=== PATIENT | female | born 1970 | race Two or more races ===

== ENCOUNTER 2016-08-21 13:51 | Emergency (ER) | payer OTHER ==
[2016-08-21 14:06] VITALS: BP 121/82; PULSE 94; BMI 19.8
[2016-08-21 16:03] VITALS: TEMP 101.5
--- NOTE | 2016-08-21 17:20 | PDOC ---
History of Present Illness <Aba Evans - Last Filed: 08/21/16 18:35> - History of Present Illness Initial Comments: 08/21/16 17:51 The patient is a 46 year old female, non verbal, with a significant past medical history of severe MR, who presents to the emergency department with home planning consultant salesperson from living facility with fever of 101F today. The home planning consultant salesperson notes the patient has been hugging her abdomen lately which indicates possible abdominal pain. Allergies: NKDA <Kalani Navarro - Last Filed: 08/21/16 18:40> - General Chief Complaint: Pain Stated Complaint: ABD PAIN, DEHYDRATED Past History - Past Medical History HTN: Yes Seizures: Yes - Immunization History Immunization Up to Date: Yes - Psycho/Social/Smoking Cessation Hx Anxiety: No Suicidal Ideation: No Smoking Status: No Smoking History: Never smoked Number of Cigarettes Smoked Daily: 0 Information on smoking cessation initiated: No Hx Alcohol Use: No Drug/Substance Use Hx: No Substance Use Type: None <Aba Evans - Last Filed: 08/21/16 18:35> <Kalani Navarro - Last Filed: 08/21/16 18:40> - Past Medical History Allergies/Adverse Reactions: Allergies Allergy/AdvReac Type Severity Reaction Status Date / Time No Known Allergies Allergy Verified 08/21/16 14:00 Home Medications: Ambulatory Orders Acidoph/L.bulg/Bif.b/S.thermop [Ann Marie-Bid Caplet] 1 each PO DAILY 08/21/16 Aspirin [ASA -] 81 mg PO DAILY 08/21/16 Diltiazem [Cardizem -] 30 mg PO TID 08/21/16 Lorazepam [Ativan] 2 mg PO PRN 08/21/16 Metoprolol Tartrate [Lopressor -] 25 mg PO BID 08/21/16 Oseltamivir Phosphate [Tamiflu Oral Suspension -] 75 mg PO BID 5 Days 08/21/16 Ubidecarenone [Chew Q] 30 mg PO DAILY 08/21/16 Review of Systems - Review of Systems Able to Perform ROS?: No (nonverbal) <Kalani Navarro - Last Filed: 08/21/16 18:40> *Physical Exam - Vital Signs Last Vital Signs Temp Pulse Resp BP Pulse Ox 101.5 F H 94 H 20 121/82 98 08/21/16 16:02 08/21/16 14:01 08/21/16 14:01 08/21/16 14:01 08/21/16 14:01 <Aba Evans - Last Filed: 08/21/16 18:35> - Vital Signs Last Vital Signs Temp Pulse Resp BP Pulse Ox 101.5 F H 94 H 20 121/82 98 08/21/16 16:02 08/21/16 14:01 08/21/16 14:01 08/21/16 14:01 08/21/16 14:01 - Physical Exam Comments: 08/21/16 17:55 GENERAL: Well developed, well nourished. Awake and alert. No acute distress. HEENT: Normocephalic, atraumatic. PERRLA, EOMI. No conjunctival pallor. Sclera are non- icteric. Moist mucous membranes. Oropharynx is clear. NECK: Supple. Full ROM. No JVD. Carotid pulses 2+ and symmetric, without bruits. No thyromegaly. No lymphadenopathy. CARDIOVASCULAR: Regular rate and rhythm. No murmurs, rubs, or gallops. Distal pulses are 2+ and symmetric. PULMONARY: No evidence of respiratory distress. Lungs clear to auscultation bilaterally. No wheezing, rales or rhonchi. ABDOMINAL: Soft. Non-tender. Non-distended. No rebound or guarding. No organomegaly. Normoactive bowel sounds. MUSCULOSKELETAL Normal range of motion at all joints. No bony deformities or tenderness. No CVA tenderness. EXTREMITIES: No cyanosis. No clubbing. No edema. No calf tenderness. SKIN: Warm and dry. Normal capillary refill. No rashes. No jaundice. NEUROLOGICAL: Alert, awake, appropriate. Cranial nerves 2-12 intact. Normoreflexic in the upper and lower extremities. Normal speech. Toes are down-going bilaterally. Gait is normal without ataxia. PSYCHIATRIC: Cooperative. Good eye contact. Appropriate mood and affect. <Kalani Navarro - Last Filed: 08/21/16 18:40> ED Treatment Course - RADIOLOGY Radiology Studies Ordered: Category Date Time Status CHEST PA & LAT [RAD] Stat Radiology 08/21/16 16:33 Ordered <Aba Evans - Last Filed: 08/21/16 18:35> Medical Decision Making - Medical Decision Making 08/21/16 18:36 I was unable to E-prescribe medication to her desired pharmacy, however, I did call the dedicated pharmacy at her senior living ([phone]) and verbally sent the prescription to the pharmacy. <Kalani Navarro - Last Filed: 08/21/16 18:40> *DC/Admit/Observation/Transfer - Discharge Dispostion Admit: No <Aba Evans - Last Filed: 08/21/16 18:35> - Attestations Scribe Attestion: 08/21/16 17:55 Documentation prepared by Kalani Navarro, acting as medical scientific liaison for Aba Evans MD, MD <Kalani Navarro - Last Filed: 08/21/16 18:40> Diagnosis at time of Disposition: Influenza A - Discharge Dispostion Disposition: HOME Condition at time of disposition: Improved - Prescriptions Prescriptions: Oseltamivir Phosphate [Tamiflu Oral Suspension -] 75 mg PO BID 5 Days
[2016-08-21] MEDS ORDERED: OSELTAMIVIR PHOSPHATE 6 MG/1 ML - 60ML BOTTLE PO ONE (18:19)
== END 2016-08-21 19:10 | disposition home or self-care (01) ==
LOC: JER 13:51
DX: J09.X2 Influenza due to identified novel influenza A virus with other respiratory manifestations (principal); I10 Essential (primary) hypertension; G40.909 Epilepsy, unspecified, not intractable, without status epilepticus; F72 Severe intellectual disabilities
CPT/HCPCS: 71020-TC; 87070; 87430; 87804; 99283-25; G9019

== ENCOUNTER 2018-11-13 08:20 | Emergency (ER) | payer OTHER ==
[2018-11-13 08:57] VITALS: BMI 16.7
[2018-11-13 08:58] VITALS: TEMP 98.8
--- NOTE | 2018-11-13 09:09 | PDOC ---
History of Present Illness - General History Source: Patient Exam Limitations: No Limitations - History of Present Illness Initial Comments: 48 yo F h/o profound MR w/ self-injury behavior, horseshoe kidney, esotropia, optic hypoplasic, non-verbal, epilepsy BIBEMS for seizure activity. Per aid, patient finished shower and sat on toliet and put her head on her laps then suddenly tilted her head back with eyes rolling. She then looked weak and aid put her on the floor. Patient tried to put her fingers into her mouth. No fever recorded. 11/13/18 09:53 Labs pending. EKG showed no change compared to prior EKG. Spoke to Dr. Mcfadden. He agrees with discharging the patient on tegratol 200mg PO BID if workup is negative. He will come in to evaluate the patient if there's further seizure episode or abnormal labs findings. <Jair Sandhu - Last Filed: 11/13/18 10:44> <Jessica Dinh - Last Filed: 11/13/18 11:17> - General Chief Complaint: Seizure Stated Complaint: FALL Time Seen by Provider: 11/13/18 08:45 Past History - Past Medical History COPD: No HTN: Yes Seizures: Yes - Immunization History Immunization Up to Date: Yes - Suicide/Smoking/Psychosocial Hx Smoking Status: No Smoking History: Never smoked Number of Cigarettes Smoked Daily: 0 Hx Alcohol Use: No Drug/Substance Use Hx: No Substance Use Type: None <Jair Sandhu - Last Filed: 11/13/18 10:44> <Jessica Dinh - Last Filed: 11/13/18 11:17> - Past Medical History Allergies/Adverse Reactions: Allergies Allergy/AdvReac Type Severity Reaction Status Date / Time No Known Allergies Allergy Verified 11/13/18 08:53 Home Medications: Ambulatory Orders Acidoph/L.bulg/Bif.b/S.thermop [Ann Marie-Bid Caplet] 1 each PO DAILY 08/21/16 Aspirin [ASA -] 81 mg PO DAILY 08/21/16 Diltiazem [Cardizem -] 30 mg PO TID 08/21/16 Lorazepam [Ativan] 2 mg PO PRN 08/21/16 Metoprolol Tartrate [Lopressor -] 25 mg PO BID 08/21/16 Carbamazepine [Tegretol -] 200 mg PO BID #27 tablet 11/13/18 Cephalexin Monohydrate [Keflex -] 500 mg PO BID #13 capsule 11/13/18 Cholecalciferol (Vitamin D3) [Vitamin D3] 400 unit PO DAILY 11/13/18 Pedi Multivit 158/Iron/Vit K1 [Cerovite Jr] 1 each PO DAILY 11/13/18 Review of Systems - Review of Systems Able to Perform ROS?: No <Jair Sandhu - Last Filed: 11/13/18 10:44> *Physical Exam - Vital Signs Last Vital Signs Temp Pulse Resp BP Pulse Ox 98.8 F 104 H 20 97/64 95 11/13/18 08:57 11/13/18 08:53 11/13/18 08:53 11/13/18 08:53 11/13/18 08:53 - Physical Exam General Appearance: No: Apparent Distress Neck: negative: Carotid bruit Respiratory/Chest: positive: Normal Breath Sounds. negative: Crackles, Rales, Rhonchi, Wheezing Cardiovascular: positive: Regular Rhythm, Regular Rate, S1, S2. negative: Murmur Gastrointestinal/Abdominal: positive: Normal Bowel Sounds. negative: Tender, Flat, Soft Neurologic: positive: Alert. negative: Fully Oriented <Jair Sandhu - Last Filed: 11/13/18 10:44> - Vital Signs Last Vital Signs Temp Pulse Resp BP Pulse Ox 98.8 F 104 H 20 97/64 95 11/13/18 08:57 11/13/18 08:53 11/13/18 08:53 11/13/18 08:53 11/13/18 08:53 <Jessica Dinh - Last Filed: 11/13/18 11:17> ED Treatment Course - LABORATORY CBC & Chemistry Diagram: 11/13/18 09:36 11/13/18 09:36 - RADIOLOGY Radiology Studies Ordered: Category Date Time Status HEAD CT WITHOUT CONTRAST [CT] Stat CT Scan 11/13/18 09:01 Ordered CXRPORT [CHEST X-RAY PORTABLE*] [RAD] Stat Radiology 11/13/18 09:01 Ordered <Jair Sandhu - Last Filed: 11/13/18 10:44> - LABORATORY CBC & Chemistry Diagram: 11/13/18 09:36 11/13/18 09:36 - ADDITIONAL ORDERS Additional order review: Laboratory Results 11/13/18 11/13/18 10:19 09:36 Sodium 137 Potassium 4.5 Chloride 109 H Carbon Dioxide 23 Anion Gap 5 L BUN 10 Creatinine 0.7 Creat Clearance w eGFR 90.09 Random Glucose 87 Calcium 8.7 Magnesium 2.3 Total Bilirubin 0.7 AST 62 H ALT 66 H Alkaline Phosphatase 66 Total Protein 7.3 Albumin 3.3 L Urine Color Dk yellow Urine Appearance Cloudy Urine pH 8.5 H D Ur Specific [place] 1.018 Urine Protein 1+ H Urine Glucose (UA) Negative Urine Ketones Negative Urine Blood Negative Urine Nitrite Positive H Urine Bilirubin Negative Urine Urobilinogen 1.0 Ur Leukocyte Esterase 2+ H Urine WBC (Auto) 58 Urine RBC (Auto) 1 Urine Casts (Auto) 76 U Epithel Cells (Auto) 2.3 Urine Bacteria (Auto) >9000 11/13/18 09:36 RBC 4.95 MCV 90.0 MCHC 34.6 RDW 12.6 MPV 9.5 Neutrophils % 66.3 Lymphocytes % 17.1 D Monocytes % 7.0 Eosinophils % 9.0 H D Basophils % 0.6 - Medications Given in the ED: ED Medications Discontinued Medications Generic Name Dose Route Start Last Admin Trade Name Freq PRN Reason Stop Dose Admin Carbamazepine 200 mg 11/13/18 09:55 11/13/18 10:04 Tegretol - PO 11/13/18 09:56 200 mg ONCE ONE Administration Sodium Chloride 1,000 mls @ 1,000 mls/hr 11/13/18 09:58 11/13/18 10:18 Normal Saline - IV 11/13/18 10:57 Not Given ASDIR STA <Jessica Dinh - Last Filed: 11/13/18 11:17> *DC/Admit/Observation/Transfer - Discharge Dispostion Decision to Admit order: No <Jair Sandhu - Last Filed: 11/13/18 10:44> <Jessica Dinh - Last Filed: 11/13/18 11:17> Diagnosis at time of Disposition: Seizure UTI (urinary tract infection) Qualifiers: Urinary tract infection type: site unspecified Hematuria presence: without hematuria Qualified Code(s): N39.0 - Urinary tract infection, site not specified - Discharge Dispostion Disposition: [facility]ILITY Condition at time of disposition: Stable - Prescriptions Prescriptions: Carbamazepine [Tegretol -] 200 mg PO BID #27 tablet Cephalexin Monohydrate [Keflex -] 500 mg PO BID #13 capsule - Referrals Referrals: Elisabeth Mcfadden MD [Staff Physician] - Edwige Chong MD [Non Staff, Medical] - - Patient Instructions Printed Discharge Instructions: DI for Seizure Disorder -- Adult, DI for Urinary Tract Infection (UTI) Additional Instructions: Ms. Dewey was evaluated in the ER at [facility] for seizure like activity. Infection workup is positive for UTI, for which keflex 500mg BID x 7 is prescribed. Case discussed with neurologist consolidation accountant and Dr. Chong, will restart the patient on Tegratol 200mg PO BID for suspected seizure in light of patient's history of epilepsy. Please continue taking your home medications as directed. your medications on discharge include keflex antibiotics x 1 week, take twice a day with food. side effects may include upset stomach, abdominal pain, vomiting, or diarrhea. do not drink alcohol with your medications. Stay well hydrated and rest adequately. an appointment. If you cannot follow-up with your primary care doctor please return to the ED It's recommended that patient follows up with neurologist in charge at [facility] regarding further evaluation and management of seizure. Return to the ED if patient experiences fever, chills, more seizure activities, altered mental status, lethargy. If you have any worsening of symptoms or any other concerns please return to the ED immediately. Return if worsening symptoms including fevers, headache, vomiting, visual or hearing disturbances, abdominal pain, chest pain, shortness of breath, syncope, dehydration, inability to take things by mouth/vomiting, altered mental status, or worsening concerning symptoms.
[2018-11-13 09:49] LABS: BASO % 0.6 % (0-2.0); HEMATOCRIT 44.5 % (32.4-45.2); HEMOGLOBIN 15.4 GM/dL (10.7-15.3); LYMPH % 17.1 % (8-40); MCH 31.1 pg (25.7-33.7); MCHC 34.6 g/dl (32.0-36.0); MEAN PLT VOLUME 9.5 fl (7.5-11.1); NEUT % 66.3 % (42.8-82.8); PLATELET COUNT 193 K/MM3 (134-434); RBC 4.95 M/mm3 (3.60-5.2); RDW 12.6 % (11.6-15.6); WHITE BLOOD COUNT 13.1 K/mm3 (4.0-10.0)
[2018-11-13] MEDS ORDERED: carBAMazepine 200 MG TABLET PO ONE (09:55)
[2018-11-13] MEDS ORDERED: SODIUM CHLORIDE 1,000 ML IV STA (09:58)
[2018-11-13] MEDS ORDERED: carBAMazepine 200 MG TABLET ONE (09:58)
[2018-11-13 10:12] LABS: ALBUMIN 3.3 g/dl (3.4-5.0); ALK PHOS 66 U/L (45-117); ANION GAP 5 MMOL/L (8-16); BILIRUBIN,TOTAL 0.7 mg/dL (0.2-1); BLOOD UREA NITROGEN 10 mg/dL (7-18); CALCIUM 8.7 mg/dL (8.5-10.1); CHLORIDE 109 mmol/L (98-107); CO2 23 mmol/L (21-32); CREATININE 0.7 mg/dL (0.55-1.3); GLUCOSE,RANDOM 87 mg/dL (74-106); MAGNESIUM 2.3 mg/dL (1.8-2.4); POTASSIUM 4.5 mmol/L (3.5-5.1); SGOT/AST 62 U/L (15-37); SGPT/ALT 66 U/L (13-61); SODIUM 137 mmol/L (136-145); TOT PROT 7.3 g/dl (6.4-8.2)
[2018-11-13 10:36] LABS: EPI CELLS 2.3 /HPF (0-5); PH,URINE 8.5 (5.0-8.0); URINE APPEARANCE CLOUDY; URINE BACTERIA >9000 /hpf (NEGATIVE); URINE BILIRUBIN NEGATIVE (NEGATIVE); URINE CASTS 76 /hpf (0-8); URINE COLOR DK YELLOW; URINE GLUCOSE (UA) NEGATIVE (NEGATIVE); URINE KETONE NEGATIVE (NEGATIVE); URINE LEUK ESTERASE 2+ (NEGATIVE); URINE NITRITE POSITIVE (NEGATIVE); URINE PROTEIN 1+ (NEGATIVE); URINE RBC 1 /hpf (0-4); URINE WBC 58 /hpf (0-5)
[2018-11-13] MEDS ORDERED: CEPHALEXIN MONOHYDRATE 500 MG CAPSULE (UD) PO ONE (10:42)
--- NOTE | 2018-11-13 10:42 | PDOC ---
Attending Attestation - Resident Resident Name: Jair Sandhu - ED Attending Attestation I have performed the following: I have examined & evaluated the patient, The case was reviewed & discussed with the resident, I agree w/resident's findings & plan - HPI HPI: 11/13/18 10:42 48 yo F h/o profound MR w/ self-injury behavior, horseshoe kidney, esotropia, optic hypoplasic, non-verbal, epilepsy, HTN, Aflutter not on AC BIBEMS for seizure activity witnessed by aide at the care home. Per aid, patient finished shower and sat on toliet and put her head on her laps then suddenly tilted her head back with eyes rolling. She then looked weak and aid put her on the floor. Patient tried to put her fingers into her mouth. history provided by aid. limited by pt's cognitive impairment. 11/13/18 10:43 - Physicial Exam PE: 11/13/18 11:05 NAD, acting appropriately, calm cooperative, well appearing, nonverbal, PERRL, EOMI, dysconjugate gazing, MMM, nl conjunctiva, anicteric; prominent dentition, neck supple. lungs clear, RRR, abdomen soft nontender, nondistended. DORANTES x4, No peripheral edema. normal color for ethnicity, WWP. - Medical Decision Making 11/13/18 10:44 See HPI for details Vital signs reviewed, bordeline BP, but prior records reveal low BPs in 90/60s, as baseline, also small habitus. also took her home meds at 6AM with metoprolol/diltiazem, likely med side effect as well no fevers rectally, mild tachy, but downtrending and in no acute distress otherwise. Ddx infection, UTI, seizure vs syncope, vasovagal. doubt injuries. back to baseline status. Prior notes reviewed, including admissions, discharges and consultations. laboratory results and imaging reviewed, basic labs and lytes wnl, notable for baseline leukocytosis (similar to prior values) UA_+nitrites and leuk esterase, +WBCs>10, c/w UTI likely trigger. however, pt w/ o systemic sx, well appearing, no further sz episodes- prior urine culture with +klebsiella, relatively tejeda sensative so put on oral abx regimen. CXR_large heart, otherwise unremarkable, no thoracic pathology EKG sinus bradycardia at 52 bpm, no interval abnormalities, narrow QRS, incomplete RBBB, ST and T wave segments and morphology abnormal with Nonspecific T wave abnormalities including diffuse ST depressions and TWI / flattening in all leads - similar to prior EKGs ED course - keflex BID for UTI x 1 week course, prior cultures reviewed. - po challenged, tolerating secretions, doubt ingestant or obstruction. no respiratory sx, abdomen soft and nontender, benign. no choking episodes, no respiratory distress. - neuro cs with Dr Mcfadden via phone, agree to restart her carbamazepine BID therapy, low dose and prior dose initiated.. neuro f/u as outpatient - resident spoke with care home rep at bedside and physician Dr Chong, agreeable to plan. rpt VS normal for patient, does not appear septic or toxic, taking PO without difficulty. no hypotension worse than prior baseline results. Dispo: aide/care home informed of my clinical impression, treatment recommendations and disposition plan. All questions answered to satisfaction and expressed understanding and comfort with this. Reasons for returning to the ED sooner discussed including new or persistent/worsening symptoms (including AMS, lethargy, neuro changes, recurrent sz vs syncope, fever, systemic sx or infection, respiratory distress, inability to kevin PO), with the patient otherwise, follow up with primary care physician. At the time of discharge, the patient is alert, clinically improved, tolerating po and verbalizes understanding of instructions, satisfied with the care received and felt comfortable with the plan. Patient does not suffer from an acute life- threatening medical condition at this time she is safe for outpatient follow- up. 11/13/18 11:12 11/13/18 11:16 11/13/18 11:54 Heart Score/ECG Review #1 ECG reviewed & interpreted by me at: 09:10 General ECG Interpretation: Sinus Rhythm Compared to previous ECG there are: No significant change 11/13/18 10:47 EKG sinus bradycardia at 52 bpm, no interval abnormalities, narrow QRS, incomplete RBBB, ST and T wave segments and morphology abnormal with Nonspecific T wave abnormalities including diffuse ST depressions and TWI / flattening in all leads - similar to prior EKGs
[2018-11-13 11:15] VITALS: BP 97/65; PULSE 67
--- NOTE | 2018-11-13 11:28 | EKG ---
Test Reason : Blood Pressure : / mmHG Vent. Rate : 052 BPM Atrial Rate : 052 BPM P-R Int : 182 ms QRS Dur : 092 ms QT Int : 496 ms P-R-T Axes : 080 063 250 degrees QTc Int : 461 ms POOR DATA QUALITY, INTERPRETATION MAY BE ADVERSELY AFFECTED SINUS BRADYCARDIA INCOMPLETE RIGHT BUNDLE BRANCH BLOCK POSSIBLE RIGHT VENTRICULAR HYPERTROPHY MARKED ST ABNORMALITY, POSSIBLE INFERIOR SUBENDOCARDIAL INJURY ABNORMAL ECG WHEN COMPARED WITH ECG OF 20-AUG-2018 13:15, NO SIGNIFICANT CHANGE WAS FOUND Confirmed by IAN KHANNA MD ([id number]) on 11/13/2018 11:28:12 AM Referred By: Confirmed By:IAN KHANNA MD
[2018-11-13] MEDS ORDERED: CEPHALEXIN MONOHYDRATE 500 MG CAPSULE (UD) ONE (11:36)
== END 2018-11-13 12:27 ==
LOC: JER 08:20
DX: N39.0 Urinary tract infection, site not specified (principal); G40.909 Epilepsy, unspecified, not intractable, without status epilepticus; F73 Profound intellectual disabilities; H50.00 Unspecified esotropia; H47.039 Optic nerve hypoplasia, unspecified eye
CPT/HCPCS: 36415; 71045-TC-FY; 80053; 81003; 83735; 85025; 87086; 87186; 93005; 93010; 99283-25

== ENCOUNTER 2018-11-19 13:01 | Emergency (ER) | payer OTHER ==
[2018-11-19 13:06] VITALS: BP 105/71; PULSE 98; BMI 19.1
--- NOTE | 2018-11-19 13:45 | PDOC ---
History of Present Illness - General Chief Complaint: Weakness Stated Complaint: EVAL / WEAKNESS Time Seen by Provider: 11/19/18 13:28 History Source: Care Provider Exam Limitations: Language Barrier (patient is nonverbal at baseline) - History of Present Illness Initial Comments: 11/19/18 13:43 As per the patients senior caregiver from the [facility], 48 y/o female with PMH of MR (nonveral at baseline), epilepsy, horseshoe kidney, optic hypoplasia, presents to the ED with a one week history of weakness/fatigue/ worsening gait. Of note, patient was here last weekend after suffering a seizure at home (she had been seizure-free for years) she was also found to have a UTI at that time. She was discharged home with Tegretol 200 BID in addition to a 7 day course of keflex. A few years ago, she was on tegretol 50mg daily for her seizures in the past, had been seizure free for many years and was subsequently taken off the tegretol. Since being out back on the tegretol this week she has been more sleepy, less, active and has been having gait issues. She is usually a very active young girl according to the [facility] rep. She has not been having any changes in her appetite and has been having normal bowel movements. The [facility] rep denies her having any fevers, nausea or vomiting. She denies any recent travel or illnesses other than the UTI for which she is on day 6/7 of treatment. 11/19/18 13:47 Timing/Duration: constant Past History - Travel Traveled outside of the country in the last 30 days: No Close contact w/someone who was outside of country & ill: No - Past Medical History Allergies/Adverse Reactions: Allergies Allergy/AdvReac Type Severity Reaction Status Date / Time No Known Allergies Allergy Verified 11/19/18 13:03 Home Medications: Ambulatory Orders Acidoph/L.bulg/Bif.b/S.thermop [Ann Marie-Bid Caplet] 1 each PO DAILY 08/21/16 Aspirin [ASA -] 81 mg PO DAILY 08/21/16 Diltiazem [Cardizem -] 30 mg PO TID 08/21/16 Lorazepam [Ativan] 2 mg PO PRN 08/21/16 Metoprolol Tartrate [Lopressor -] 25 mg PO BID 08/21/16 Carbamazepine [Tegretol -] 200 mg PO BID #27 tablet 11/13/18 Cephalexin Monohydrate [Keflex -] 500 mg PO BID #13 capsule 11/13/18 Cholecalciferol (Vitamin D3) [Vitamin D3] 400 unit PO DAILY 11/13/18 Pedi Multivit 158/Iron/Vit K1 [Cerovite Jr] 1 each PO DAILY 11/13/18 COPD: No CHF: No HTN: Yes Seizures: Yes - Reproductive History LMP comment: currently on her menses - Immunization History Immunization Up to Date: Yes - Suicide/Smoking/Psychosocial Hx Smoking Status: No Smoking History: Never smoked Number of Cigarettes Smoked Daily: 0 Hx Alcohol Use: No Drug/Substance Use Hx: No Substance Use Type: None Review of Systems - Review of Systems Able to Perform ROS?: No (patient nonverbal) *Physical Exam - Vital Signs Last Vital Signs Temp Pulse Resp BP Pulse Ox 98 H 18 105/71 96 11/19/18 13:03 11/19/18 13:03 11/19/18 13:03 11/19/18 13:03 - Physical Exam General Appearance: Yes: Nourished Neck: positive: Normal Thyroid Respiratory/Chest: positive: Lungs Clear, Normal Breath Sounds Cardiovascular: positive: Regular Rhythm, Regular Rate, S1, S2. negative: Edema Gastrointestinal/Abdominal: positive: Normal Bowel Sounds, Flat, Soft. negative : Tenderness Musculoskeletal: negative: CVA Tenderness (R), CVA Tenderness (L) Extremity: negative: Pedal Edema, Swelling Neurologic: positive: Alert, Other (moves all extremities ) ED Treatment Course - LABORATORY CBC & Chemistry Diagram: 11/19/18 14:47 11/19/18 14:47 Medical Decision Making - Medical Decision Making 11/19/18 14:04 cbc/cmp/tsh/ua/ CXR tegretol level adding on troponin - labs all normal 11/19/18 14:24 11/19/18 15:37 *DC/Admit/Observation/Transfer Diagnosis at time of Disposition: Fatigue, Lethargy, Weakness - Discharge Dispostion Disposition: HOME Condition at time of disposition: Stable Decision to Admit order: No - Referrals - Patient Instructions Additional Instructions: You came to the emergency room with weakness / lethargy likely due to your new seizure medication. We did basic labs on you all of which were normal. If you begin to experience fevers, vomiting, urinary symptoms please repeat a urine sample and send it to the lab. In addition, if any of your symptoms become more concerning please return to the emergency room immediately. Please follow up with Dr. su within a few days - Post Discharge Activity - Attestations Physician Attestion: 11/19/18 15:59 mohinder romero
--- NOTE | 2018-11-19 14:00 | PDOC ---
Attending Attestation - HPI HPI: 11/19/18 14:45 The patient is a 48 year old female with a significant past medical history of hypertension, esotropia, aflutter, epilepsy, horseshoe kidney and MR who presents to the emergency department via EMS from [facility] with generalized weakness for about 1 week. As per home, the patient has been noted to have decreased PO intake & normal activity and increased weakness & sleepiness. It is noted that the patient is non-verbal at base. No other symptoms or complaints are reported. - Physicial Exam PE: 11/19/18 15:11 Vitals: Triage vital signs reviewed General Appearance: No acute distress, well nourished, well developed Head: Atraumatic Neck: Supple; No nuchal rigidity Chest Wall: Nontender Cardiac: Regular rate and rhythm, no murmurs, no rubs, no gallops Lungs: Clear to auscultation bilateral, good air movement bilaterally Abdomen: Soft, nondistended, normal bowel sounds, nontender to palpation Extremities: Full range of motion to all extremities, no cyanosis, clubbing, or edema Skin: Warm and dry, no rashes or lesions, no rash, no petechiae Neuro: AOX3; Cranial Nerves 2-12 grossly intact, Strength intact to all extremities, Sensation intact to all extremities, gait deferred Psych: Normal mood, normal affect - Medical Decision Making 11/19/18 14:46 The patient is a 48 year old female with a significant past medical history of hypertension, esotropia, aflutter, epilepsy, horseshoe kidney and MR who presents to the emergency department via EMS from [facility] with generalized weakness for about 1 week. The patient will get labs drawn, EKG nad chest x-ray. <Bora Holbrook - Last Filed: 11/19/18 15:11> - Resident Resident Name: Raquel Vuong - ED Attending Attestation I have performed the following: I have examined & evaluated the patient, The case was reviewed & discussed with the resident, I agree w/resident's findings & plan, Exceptions are as noted - Medical Decision Making 11/19/18 16:05 Well-appearing no apparent distress symptoms emergency department for tiredness Patient was just treated with a UTI We have rechecked her laboratory analysis which is within normal limits patient has been unable to give a urine sample here in the emergency department No fever no white count low suspicion for recurrent UTI Patient eating smiling at the bedside was treated with appropriate antibiotic during last is it Most likely her tiredness secondary to her new medication Tegretol in which 32% of patients will experience this is an adverse effect Her shelter can send a urinalysis she was instructed to return to the emergency department for any fever vomiting change in behavior for any concerns. Findings, need for follow-up and strict return instructions discussed with care team. <Johan Jaramillo - Last Filed: 11/19/18 16:07> Heart Score/ECG Review - ECG Impressions Comment:: 11/19/18 16:07 EKG performed at 1402 demonstrates normal sinus rhythm incomplete right bundle- branch block diffuse ST depressions in leads 23 aVF V3-4 These EKG findings are unchanged from her previous EKG. Interpreted by me. <Johan Jaramillo - Last Filed: 11/19/18 16:07> Attestations - Attestations 11/19/18 14:47 Documentation prepared by Bora Holbrook, acting as medical office technology instructor for Johan Jaramillo MD. <Bora Holbrook - Last Filed: 11/19/18 15:11>
[2018-11-19 14:59] LABS: BASO % 0.6 % (0-2.0); EOS % 8.4 % (0-4.5); HEMATOCRIT 43.3 % (32.4-45.2); LYMPH % 25.5 % (8-40); MCH 31.4 pg (25.7-33.7); MCHC 34.7 g/dl (32.0-36.0); MEAN CELL VOLUME 90.7 fl (80-96); MONO % 7.9 % (3.8-10.2); NEUT % 57.6 % (42.8-82.8); PLATELET COUNT 191 K/MM3 (134-434); RBC 4.77 M/mm3 (3.60-5.2); RDW 12.2 % (11.6-15.6); WHITE BLOOD COUNT 8.5 K/mm3 (4.0-10.0)
[2018-11-19 15:35] LABS: ALBUMIN 3.2 g/dl (3.4-5.0); ALK PHOS 71 U/L (45-117); ANION GAP 4 MMOL/L (8-16); BILIRUBIN,TOTAL 0.3 mg/dL (0.2-1); BLOOD UREA NITROGEN 11 mg/dL (7-18); CALCIUM 8.4 mg/dL (8.5-10.1); CHLORIDE 107 mmol/L (98-107); CO2 28 mmol/L (21-32); CREATININE 0.7 mg/dL (0.55-1.3); GLUCOSE,RANDOM 97 mg/dL (74-106); SGOT/AST 47 U/L (15-37); SGPT/ALT 54 U/L (13-61); SODIUM 139 mmol/L (136-145); TOT PROT 7.1 g/dl (6.4-8.2)
--- NOTE | 2018-11-22 10:39 | EKG ---
Test Reason : Blood Pressure : / mmHG Vent. Rate : 084 BPM Atrial Rate : 084 BPM P-R Int : 172 ms QRS Dur : 096 ms QT Int : 402 ms P-R-T Axes : 073 054 -79 degrees QTc Int : 475 ms NORMAL SINUS RHYTHM INCOMPLETE RIGHT BUNDLE BRANCH BLOCK MARKED ST ABNORMALITY, POSSIBLE INFERIOR SUBENDOCARDIAL INJURY ABNORMAL ECG WHEN COMPARED WITH ECG OF 13-NOV-2018 09:08, VENT. RATE HAS INCREASED BY 32 BPM T WAVE INVERSION LESS EVIDENT IN LATERAL LEADS Confirmed by BENJA PEÑA MD ([id number]) on 11/22/2018 10:39:18 AM Referred By: Confirmed By:BENJA PEÑA MD
== END 2018-11-19 16:25 | disposition home or self-care (01) ==
LOC: JER 13:01
DX: R53.1 Weakness (principal); R53.83 Other fatigue; R26.89 Other abnormalities of gait and mobility; I10 Essential (primary) hypertension; G40.909 Epilepsy, unspecified, not intractable, without status epilepticus; Q63.1 Lobulated, fused and horseshoe kidney; F78 Other intellectual disabilities
CPT/HCPCS: 36415; 80053; 80156; 84443; 84484; 84702; 85025; 93005; 93010; 99283-25

== ENCOUNTER 2020-09-29 11:08 | Emergency (ER) | payer OTHER ==
[2020-09-29 11:35] VITALS: BMI 34.8
[2020-09-29 14:03] LABS: BASO % 0.5 % (0-2.0); EOS % 0.1 % (0-4.5); HEMATOCRIT 43.9 % (32.4-45.2); HEMOGLOBIN 15.9 GM/dL (10.7-15.3); LYMPH % 6.1 % (8-40); MCH 32.2 pg (25.7-33.7); MCHC 36.3 g/dl (32.0-36.0); MEAN CELL VOLUME 88.8 fl (80-96); MEAN PLT VOLUME 8.5 fl (7.5-11.1); MONO % 7.2 % (3.8-10.2); NEUT % 86.1 % (42.8-82.8); PLATELET COUNT 235 K/MM3 (134-434); RBC 4.94 M/mm3 (3.60-5.2); RDW 12.8 % (11.6-15.6); WHITE BLOOD COUNT 18.1 K/mm3 (4.0-10.0)
[2020-09-29 14:11] LABS: POTASSIUM 3.9 mmol/L (3.5-5.1)
[2020-09-29 14:12] LABS: ALBUMIN 3.6 g/dl (3.4-5.0); BLOOD UREA NITROGEN 13.7 mg/dL (7-18)
[2020-09-29 14:18] LABS: BILIRUBIN,TOTAL 1.4 mg/dL (0.2-1)
[2020-09-29 15:16] LABS: EPI CELLS >36 /uL (0-25.1); HYALINE CASTS 38 /uL (0-3.1); URINE APPEARANCE TURBID; URINE BILIRUBIN 1+ (NEGATIVE); URINE COLOR DK YELLOW; URINE GLUCOSE (UA) NEGATIVE (NEGATIVE); URINE KETONE 1+ (NEGATIVE); URINE LEUK ESTERASE 2+ (NEGATIVE); URINE NITRITE POSITIVE (NEGATIVE); URINE PROTEIN 2+ (NEGATIVE); URINE WBC 1453 /uL (0-25.8)
[2020-09-29] MEDS ORDERED: SULFAMETHOXAZOLE/TRIMETHOPRIM 800MG/160MG D.S. TABLET PO ONE (15:50)
[2020-09-29 15:57] LABS: URINE RBC 642.7 /uL (0-23.9); YEAST NONE SEEN (NEGATIVE)
[2020-09-29 16:23] VITALS: BP 131/79; PULSE 90; TEMP 96.7
[2020-09-29] MEDS ORDERED: SULFAMETHOXAZOLE/TRIMETHOPRIM 800MG/160MG D.S. TABLET ONE (16:30)
== END 2020-09-29 16:50 | disposition home or self-care (01) ==
LOC: JER 11:08
DX: N30.00 Acute cystitis without hematuria (principal)
CPT/HCPCS: 36415; 70450-TC; 70486-TC; 72125-TC; 80053; 81003; 85025; 99285-25

== ENCOUNTER 2021-05-08 09:16 | Emergency (ER) | payer OTHER ==
[2021-05-08 09:36] VITALS: BP 129/76; PULSE 78; TEMP 98.6; BMI 23.9
[2021-05-08 11:34] LABS: EPI CELLS 7 /uL (0-25.1); HYALINE CASTS 3 /uL (0-3.1); URINE APPEARANCE TURBID; URINE BACTERIA >9,000 /uL (0-1359); URINE BILIRUBIN NEGATIVE (NEGATIVE); URINE COLOR YELLOW; URINE GLUCOSE (UA) NEGATIVE (NEGATIVE); URINE KETONE NEGATIVE (NEGATIVE); URINE LEUK ESTERASE 3+ (NEGATIVE); URINE NITRITE NEGATIVE (NEGATIVE); URINE PROTEIN 1+ (NEGATIVE); URINE RBC 38 /uL (0-23.9); URINE WBC 4286 /uL (0-25.8)
[2021-05-08 11:41] LABS: CHLORIDE 108 mmol/L (98-107); SODIUM 141 mmol/L (136-145)
[2021-05-08 11:44] LABS: ALBUMIN 3.3 g/dl (3.4-5.0); CALCIUM 8.8 mg/dL (8.5-10.1)
[2021-05-08 11:45] LABS: ANION GAP 5 MMOL/L (8-16); BLOOD UREA NITROGEN 10.7 mg/dL (7-18); CO2 27 mmol/L (21-32); GLUCOSE,RANDOM 102 mg/dL (74-106)
[2021-05-08 11:47] LABS: SGOT/AST 54 U/L (15-37); SGPT/ALT 57 U/L (13-61)
[2021-05-08 11:48] LABS: BILIRUBIN,TOTAL 0.4 mg/dL (0.2-1); CREATININE 0.7 mg/dL (0.55-1.3)
[2021-05-08 11:49] LABS: ALK PHOS 101 U/L (45-117); TOT PROT 7.6 g/dl (6.4-8.2)
[2021-05-08 11:59] LABS: BASO % 0.3 % (0-2.0); EOS % 0.6 % (0-4.5); HEMATOCRIT 42.9 % (32.4-45.2); HEMOGLOBIN 15.6 GM/dL (10.7-15.3); LYMPH % 13.2 % (8-40); MCH 32.4 pg (25.7-33.7); MCHC 36.3 g/dl (32.0-36.0); MEAN CELL VOLUME 89.3 fl (80-96); MEAN PLT VOLUME 9.4 fl (7.5-11.1); MONO % 4.3 % (3.8-10.2); NEUT % 81.6 % (42.8-82.8); PLATELET COUNT 170 10^3/uL (134-434); RBC 4.81 M/mm3 (3.60-5.2); RDW 12.2 % (11.6-15.6); WHITE BLOOD COUNT 10.8 K/mm3 (4.0-10.0)
[2021-05-08] MEDS ORDERED: CEPHALEXIN MONOHYDRATE 500 MG CAPSULE (UD) PO ONE (12:21)
[2021-05-08] MEDS ORDERED: CEPHALEXIN MONOHYDRATE 250 MG CAPSULE (FP) ONE ×2 (12:26→13:05)
== END 2021-05-08 13:45 | disposition home or self-care (01) ==
LOC: JER 09:16
DX: G40.89 Other seizures (principal); N39.0 Urinary tract infection, site not specified
CPT/HCPCS: 36415; 71045-TC-FY; 80053; 80156; 81003; 82550; 84484; 85025; 87086; 87186; 93005; 93010; 99285-25

== ENCOUNTER 2021-06-26 08:44 | Inpatient (IN) | payer OTHER ==
[2021-06-26] MEDS ORDERED: SODIUM CHLORIDE 0.9% 1000 ML INFUS.BAG IV ONE ×2 (11:28→15:45)
[2021-06-26] MEDS ORDERED: ONDANSETRON 4 MG/2 ML VIAL ONE (11:30)
[2021-06-26] MEDS ORDERED: ONDANSETRON 4 MG/2 ML VIAL IVPUSH ONE (11:35)
[2021-06-26 11:42] LABS: BASO % 0.3 % (0-2.0); EOS % 0.3 % (0-4.5); HEMATOCRIT 44.5 % (32.4-45.2); HEMOGLOBIN 15.8 GM/dL (10.7-15.3); LYMPH % 7.6 % (8-40); MCH 31.6 pg (25.7-33.7); MCHC 35.4 g/dl (32.0-36.0); MEAN CELL VOLUME 89.2 fl (80-96); MONO % 4.2 % (3.8-10.2); NEUT % 87.6 % (42.8-82.8); PLATELET COUNT 184 10^3/uL (134-434); RBC 4.99 M/mm3 (3.60-5.2); RDW 13.2 % (11.6-15.6); WHITE BLOOD COUNT 13.7 K/mm3 (4.0-10.0)
[2021-06-26 12:08] LABS: CALCIUM 8.7 mg/dL (8.5-10.1)
[2021-06-26 12:09] LABS: ALBUMIN 3.3 g/dl (3.4-5.0); BLOOD UREA NITROGEN 8.5 mg/dL (7-18)
[2021-06-26 12:12] LABS: CREATININE 0.7 mg/dL (0.55-1.3)
[2021-06-26 12:13] LABS: BILIRUBIN,TOTAL 0.4 mg/dL (0.2-1); TOT PROT 7.3 g/dl (6.4-8.2)
[2021-06-26 12:35] LABS: EPI CELLS 32 /uL (0-25.1); HYALINE CASTS 3 /uL (0-3.1); PH,URINE 7.5 (5.0-8.0); URINE APPEARANCE CLEAR; URINE BACTERIA 21 /uL (0-1359); URINE BILIRUBIN NEGATIVE (NEGATIVE); URINE COLOR YELLOW; URINE GLUCOSE (UA) NEGATIVE (NEGATIVE); URINE KETONE NEGATIVE (NEGATIVE); URINE LEUK ESTERASE NEGATIVE (NEGATIVE); URINE NITRITE NEGATIVE (NEGATIVE); URINE PROTEIN NEGATIVE (NEGATIVE); URINE RBC 6 /uL (0-23.9); URINE UROBILINOGEN 0.2 mg/dL (0.2-1.0); URINE WBC 22 /uL (0-25.8)
[2021-06-26] MEDS ORDERED: ACETAMINOPHEN INJECTION 100 ML IVPB ONE (14:46)
[2021-06-26] MEDS ORDERED: VANCOMYCIN 1 GM in D5W (PRE-DOCKED) 1,000 MG/250 ML IVPB ONE (14:53)
[2021-06-26] MEDS ORDERED: PIPERACILLIN/TAZOB 3.375 GM 3.375 GM in DEXTROSE 5%-WATER - 50 ML IVPB ONE (14:54)
[2021-06-26] MEDS ORDERED: VANCOMYCIN 1 GRAM (PRE-DOCKED) 1,000 MG/250 ML BAG IVPB ONE (15:06)
[2021-06-26] MEDS ORDERED: PIPERACILLIN/TAZOB 3.375 GM 3.375 GM/50 ML BAG IVPB ONE (15:06)
[2021-06-26] MEDS ORDERED: SODIUM CHLORIDE 1,000 ML IV SCH ×2 (15:45→18:21)
[2021-06-26] MEDS ORDERED: ALBUTEROL SO4 0.5 % INH SOLN 2.5 MG/0.5 ML VIAL.NEB. NEB PRN (15:51)
[2021-06-26] MEDS ORDERED: ENOXAPARIN NA (PORCINE) 40 MG/0.4 ML DISP.SYRIN SQ ONE (16:00)
[2021-06-26] MEDS ORDERED: ACETAMINOPHEN 1000 MG/100 ML VIAL IVPB PRN (16:12)
[2021-06-26] MEDS: ENOXAPARIN NA (PORCINE) 40 MG/0.4 ML DISP.SYRIN SQ SCH (16:17)
[2021-06-26] MEDS ORDERED: LORazepam 2 MG/ML SDV VIAL IVPUSH PRN (16:21)
[2021-06-26] MEDS ORDERED: PIPERACILLIN/TAZOB 3.375 GM 3.375 GM in DEXTROSE 5%-WATER - 50 ML IVPB SCH (18:00)
[2021-06-26] MEDS: PANTOPRAZOLE SODIUM 40 MG VIAL IVPUSH SCH (18:33)
[2021-06-26] MEDS ORDERED: carBAMazepine 100 MG TAB.CHEW PO SCH (22:00)
[2021-06-26] MEDS ORDERED: CHLORHEXIDINE GLUCONATE 4% CLEANSER FOR DECOLONIZATION TP SCH (22:00)
[2021-06-26] MEDS: CARBAMIDE PEROXIDE 6.5% OTIC 15 ML BOTTLE AU SCH (23:31)
[2021-06-26] MEDS: dilTIAZem HCL 30 MG TABLET PO SCH (23:31)
[2021-06-26] MEDS: METOPROLOL TARTRATE 25 MG TABLET (FP) PO SCH (23:31)
[2021-06-27] MEDS ORDERED: ACETAMINOPHEN 1000 MG/100 ML VIAL IVPB ONE (01:29)
[2021-06-27] MEDS ORDERED: DEXTROSE 5%-WATER - 50 ML IVPB ONE ×3 (01:57→17:24)
[2021-06-27] MEDS ORDERED: PIPERACILLIN/TAZOBACTAM 3.375 GM VIAL IVPB ONE ×3 (01:57→17:24)
[2021-06-27] MEDS: PIPERACILLIN/TAZOB 3.375 GM 3.375 GM in DEXTROSE 5%-WATER - 50 ML IVPB SCH ×3 (02:01→17:25)
[2021-06-27] MEDS: dilTIAZem HCL 30 MG TABLET PO SCH ×3 (06:12→21:23)
[2021-06-27] MEDS: carBAMazepine 100 MG/5 ML UNIT-DOSE CUP PO SCH ×2 (06:12→17:26)
[2021-06-27 08:22] LABS: BASO % 0.2 % (0-2.0); EOS % 0.9 % (0-4.5); HEMATOCRIT 34.8 % (32.4-45.2); HEMOGLOBIN 12.4 GM/dL (10.7-15.3); LYMPH % 19.8 % (8-40); MCHC 35.8 g/dl (32.0-36.0); MEAN CELL VOLUME 89.6 fl (80-96); MEAN PLT VOLUME 9.1 fl (7.5-11.1); MONO % 5.8 % (3.8-10.2); NEUT % 73.3 % (42.8-82.8); PLATELET COUNT 141 10^3/uL (134-434); RBC 3.88 M/mm3 (3.60-5.2); RDW 13.3 % (11.6-15.6); WHITE BLOOD COUNT 10.6 K/mm3 (4.0-10.0)
[2021-06-27 08:49] LABS: CALCIUM 7.9 mg/dL (8.5-10.1); MAGNESIUM 1.9 mg/dL (1.8-2.4)
[2021-06-27 08:52] LABS: CREATININE 0.7 mg/dL (0.55-1.3); PHOSPHOROUS 3.2 mg/dL (2.5-4.9)
[2021-06-27 08:53] LABS: BILIRUBIN,TOTAL 1.4 mg/dL (0.2-1)
[2021-06-27 08:54] LABS: TOT PROT 5.4 g/dl (6.4-8.2)
[2021-06-27 09:03] LABS: ALBUMIN 2.3 g/dl (3.4-5.0)
[2021-06-27] MEDS: PANTOPRAZOLE SODIUM 40 MG VIAL IVPUSH SCH (10:29)
[2021-06-27] MEDS: METOPROLOL TARTRATE 25 MG TABLET (FP) PO SCH ×2 (10:29→21:22)
[2021-06-27] MEDS: ENOXAPARIN NA (PORCINE) 40 MG/0.4 ML DISP.SYRIN SQ SCH (10:29)
[2021-06-27] MEDS: ASPIRIN COATED 81 MG TABLET.EC PO SCH (10:29)
[2021-06-27] MEDS ORDERED: PT OWN MED DRAWER 7, Y5N ONE ×2 (17:24→21:16)
[2021-06-27] MEDS: CARBAMIDE PEROXIDE 6.5% OTIC 15 ML BOTTLE AU SCH (22:01)
[2021-06-28] MEDS ORDERED: DEXTROSE 5%-WATER - 50 ML IVPB ONE ×3 (00:12→17:10)
[2021-06-28] MEDS ORDERED: PIPERACILLIN/TAZOBACTAM 3.375 GM VIAL IVPB ONE ×3 (00:12→17:10)
[2021-06-28] MEDS: PIPERACILLIN/TAZOB 3.375 GM 3.375 GM in DEXTROSE 5%-WATER - 50 ML IVPB SCH ×3 (01:18→17:13)
[2021-06-28] MEDS: dilTIAZem HCL 30 MG TABLET PO SCH ×3 (05:26→21:37)
[2021-06-28] MEDS: carBAMazepine 100 MG/5 ML UNIT-DOSE CUP PO SCH ×2 (05:26→17:12)
[2021-06-28] MEDS: ENOXAPARIN NA (PORCINE) 40 MG/0.4 ML DISP.SYRIN SQ SCH (09:10)
[2021-06-28] MEDS: PANTOPRAZOLE SODIUM 40 MG VIAL IVPUSH SCH (09:10)
[2021-06-28] MEDS: METOPROLOL TARTRATE 25 MG TABLET (FP) PO SCH ×2 (09:10→21:37)
[2021-06-28] MEDS: ASPIRIN COATED 81 MG TABLET.EC PO SCH (09:12)
[2021-06-28 09:13] LABS: BASO % 0.2 % (0-2.0); EOS % 0.9 % (0-4.5); HEMATOCRIT 35.2 % (32.4-45.2); LYMPH % 12.6 % (8-40); MCH 32.6 pg (25.7-33.7); MCHC 36.8 g/dl (32.0-36.0); MEAN CELL VOLUME 88.5 fl (80-96); MEAN PLT VOLUME 9.2 fl (7.5-11.1); MONO % 7.3 % (3.8-10.2); PLATELET COUNT 141 10^3/uL (134-434); RBC 3.98 M/mm3 (3.60-5.2); RDW 12.7 % (11.6-15.6); WHITE BLOOD COUNT 10.9 K/mm3 (4.0-10.0)
[2021-06-28 09:22] LABS: ALBUMIN 2.6 g/dl (3.4-5.0); CALCIUM 7.8 mg/dL (8.5-10.1)
[2021-06-28 09:23] LABS: BLOOD UREA NITROGEN 10.7 mg/dL (7-18); MAGNESIUM 1.8 mg/dL (1.8-2.4)
[2021-06-28 09:26] LABS: CREATININE 0.7 mg/dL (0.55-1.3); PHOSPHOROUS 2.9 mg/dL (2.5-4.9)
[2021-06-28 09:27] LABS: BILIRUBIN,TOTAL 1.2 mg/dL (0.2-1); TOT PROT 6.1 g/dl (6.4-8.2)
[2021-06-28] MEDS ORDERED: POTASSIUM CHLORIDE ORAL LIQUID 20 MEQ/15 ML PO ONE (11:45)
[2021-06-28] MEDS ORDERED: PT OWN MED DRAWER 7, Y5N ONE (17:10)
[2021-06-28] MEDS: CARBAMIDE PEROXIDE 6.5% OTIC 15 ML BOTTLE AU SCH (21:38)
[2021-06-28 22:41] VITALS: BMI 19.3
[2021-06-29] MEDS ORDERED: DEXTROSE 5%-WATER - 50 ML IVPB ONE ×3 (00:09→16:09)
[2021-06-29] MEDS ORDERED: PIPERACILLIN/TAZOBACTAM 3.375 GM VIAL IVPB ONE ×3 (00:09→16:09)
[2021-06-29] MEDS: PIPERACILLIN/TAZOB 3.375 GM 3.375 GM in DEXTROSE 5%-WATER - 50 ML IVPB SCH ×3 (02:53→17:22)
[2021-06-29] MEDS ORDERED: DEXTROSE 50%-WATER 25 GM/50 ML DISP.SYRIN IVPUSH ONE (05:48)
[2021-06-29] MEDS ORDERED: PT OWN MED DRAWER 7, Y5N ONE ×3 (05:49→21:57)
[2021-06-29] MEDS ORDERED: DEXTROSE 50%-WATER 25 GM/50 ML DISP.SYRIN ONE (05:50)
[2021-06-29] MEDS: carBAMazepine 100 MG/5 ML UNIT-DOSE CUP PO SCH ×2 (06:22→17:22)
[2021-06-29] MEDS: dilTIAZem HCL 30 MG TABLET PO SCH ×3 (06:23→22:04)
[2021-06-29 10:02] LABS: BASO % 0.2 % (0-2.0); EOS % 1.6 % (0-4.5); HEMATOCRIT 35.4 % (32.4-45.2); HEMOGLOBIN 13.2 GM/dL (10.7-15.3); LYMPH % 14.5 % (8-40); MCH 32.7 pg (25.7-33.7); MCHC 37.3 g/dl (32.0-36.0); MEAN CELL VOLUME 87.6 fl (80-96); MEAN PLT VOLUME 8.9 fl (7.5-11.1); MONO % 8.1 % (3.8-10.2); NEUT % 75.6 % (42.8-82.8); PLATELET COUNT 159 10^3/uL (134-434); RBC 4.03 M/mm3 (3.60-5.2); WHITE BLOOD COUNT 10.9 K/mm3 (4.0-10.0)
[2021-06-29 10:21] LABS: ALBUMIN 2.6 g/dl (3.4-5.0); BLOOD UREA NITROGEN 10.5 mg/dL (7-18); MAGNESIUM 2.3 mg/dL (1.8-2.4)
[2021-06-29 10:22] LABS: CALCIUM 8.2 mg/dL (8.5-10.1)
[2021-06-29 10:24] LABS: CREATININE 0.5 mg/dL (0.55-1.3); PHOSPHOROUS 2.9 mg/dL (2.5-4.9)
[2021-06-29 10:26] LABS: TOT PROT 6.2 g/dl (6.4-8.2)
[2021-06-29] MEDS: ASPIRIN COATED 81 MG TABLET.EC PO SCH (11:07)
[2021-06-29] MEDS: PANTOPRAZOLE SODIUM 40 MG VIAL IVPUSH SCH (11:08)
[2021-06-29] MEDS: METOPROLOL TARTRATE 25 MG TABLET (FP) PO SCH ×2 (11:08→22:04)
[2021-06-29] MEDS: ENOXAPARIN NA (PORCINE) 40 MG/0.4 ML DISP.SYRIN SQ SCH (11:08)
[2021-06-29] MEDS: CARBAMIDE PEROXIDE 6.5% OTIC 15 ML BOTTLE AU SCH (22:04)
[2021-06-30] MEDS ORDERED: DEXTROSE 5%-WATER - 50 ML IVPB ONE ×4 (01:43→17:05)
[2021-06-30] MEDS ORDERED: PIPERACILLIN/TAZOBACTAM 3.375 GM VIAL IVPB ONE ×4 (01:43→17:05)
[2021-06-30] MEDS: PIPERACILLIN/TAZOB 3.375 GM 3.375 GM in DEXTROSE 5%-WATER - 50 ML IVPB SCH ×3 (02:11→17:13)
[2021-06-30] MEDS ORDERED: PT OWN MED DRAWER 7, Y5N ONE ×2 (05:40→17:04)
[2021-06-30] MEDS: dilTIAZem HCL 30 MG TABLET PO SCH ×3 (05:46→21:04)
[2021-06-30] MEDS: carBAMazepine 100 MG/5 ML UNIT-DOSE CUP PO SCH ×2 (05:46→17:13)
[2021-06-30 08:31] LABS: BASO % 0.3 % (0-2.0); EOS % 5.5 % (0-4.5); HEMOGLOBIN 13.2 GM/dL (10.7-15.3); LYMPH % 14.1 % (8-40); MCH 31.9 pg (25.7-33.7); MCHC 36.5 g/dl (32.0-36.0); MEAN CELL VOLUME 87.5 fl (80-96); MEAN PLT VOLUME 8.8 fl (7.5-11.1); MONO % 8.9 % (3.8-10.2); NEUT % 71.2 % (42.8-82.8); PLATELET COUNT 178 10^3/uL (134-434); RBC 4.12 M/mm3 (3.60-5.2); RDW 12.8 % (11.6-15.6); WHITE BLOOD COUNT 8.6 K/mm3 (4.0-10.0)
[2021-06-30 08:58] LABS: ALBUMIN 2.6 g/dl (3.4-5.0); BLOOD UREA NITROGEN 9.9 mg/dL (7-18); CALCIUM 8.3 mg/dL (8.5-10.1)
[2021-06-30 08:59] LABS: MAGNESIUM 2.3 mg/dL (1.8-2.4)
[2021-06-30 09:00] LABS: CREATININE 0.6 mg/dL (0.55-1.3)
[2021-06-30 09:01] LABS: BILIRUBIN,TOTAL 1.2 mg/dL (0.2-1); PHOSPHOROUS 3.3 mg/dL (2.5-4.9)
[2021-06-30 09:02] LABS: TOT PROT 6.4 g/dl (6.4-8.2)
[2021-06-30] MEDS: PANTOPRAZOLE SODIUM 40 MG VIAL IVPUSH SCH (10:55)
[2021-06-30] MEDS: ENOXAPARIN NA (PORCINE) 40 MG/0.4 ML DISP.SYRIN SQ SCH (10:55)
[2021-06-30] MEDS: METOPROLOL TARTRATE 25 MG TABLET (FP) PO SCH ×2 (10:55→21:04)
[2021-06-30] MEDS: ASPIRIN COATED 81 MG TABLET.EC PO SCH (10:55)
[2021-06-30] MEDS ORDERED: ACETAMINOPHEN 1000 MG/100 ML VIAL IVPB ONE ×2 (20:17)
[2021-06-30] MEDS: CARBAMIDE PEROXIDE 6.5% OTIC 15 ML BOTTLE AU SCH (21:04)
[2021-07-01] MEDS ORDERED: PIPERACILLIN/TAZOBACTAM 3.375 GM VIAL IVPB ONE ×3 (00:56→09:55)
[2021-07-01] MEDS ORDERED: DEXTROSE 5%-WATER - 50 ML IVPB ONE ×3 (00:57→09:55)
[2021-07-01] MEDS: PIPERACILLIN/TAZOB 3.375 GM 3.375 GM in DEXTROSE 5%-WATER - 50 ML IVPB SCH ×2 (01:13→09:56)
[2021-07-01] MEDS ORDERED: PT OWN MED DRAWER 7, Y5N ONE ×2 (05:10→11:28)
[2021-07-01] MEDS: dilTIAZem HCL 30 MG TABLET PO SCH ×2 (05:40→14:57)
[2021-07-01] MEDS: carBAMazepine 100 MG/5 ML UNIT-DOSE CUP PO SCH (05:40)
[2021-07-01 09:37] LABS: CALCIUM 8.6 mg/dL (8.5-10.1)
[2021-07-01 09:38] LABS: ALBUMIN 2.8 g/dl (3.4-5.0); BLOOD UREA NITROGEN 10.1 mg/dL (7-18); MAGNESIUM 2.5 mg/dL (1.8-2.4)
[2021-07-01 09:40] LABS: CREATININE 0.5 mg/dL (0.55-1.3)
[2021-07-01 09:42] LABS: TOT PROT 6.7 g/dl (6.4-8.2)
[2021-07-01] MEDS: ASPIRIN COATED 81 MG TABLET.EC PO SCH (09:57)
[2021-07-01] MEDS: ENOXAPARIN NA (PORCINE) 40 MG/0.4 ML DISP.SYRIN SQ SCH (09:57)
[2021-07-01] MEDS: METOPROLOL TARTRATE 25 MG TABLET (FP) PO SCH (09:57)
[2021-07-01] MEDS: PANTOPRAZOLE SODIUM 40 MG VIAL IVPUSH SCH (09:57)
[2021-07-01 09:59] LABS: BASO % 0.4 % (0-2.0); HEMATOCRIT 37.5 % (32.4-45.2); HEMOGLOBIN 13.6 GM/dL (10.7-15.3); LYMPH % 21.6 % (8-40); MCH 31.5 pg (25.7-33.7); MCHC 36.2 g/dl (32.0-36.0); MEAN PLT VOLUME 9.1 fl (7.5-11.1); MONO % 8.3 % (3.8-10.2); NEUT % 64.7 % (42.8-82.8); PLATELET COUNT 199 10^3/uL (134-434); RBC 4.31 M/mm3 (3.60-5.2); RDW 12.9 % (11.6-15.6); WHITE BLOOD COUNT 8.4 K/mm3 (4.0-10.0)
[2021-07-01 14:53] VITALS: BP 131/75; PULSE 69; TEMP 98.5
== END 2021-07-01 17:21 | DRG 139 ==
LOC: JER 08:44 → JERBED 13:40 → MERGE 13:40 → J6S 18:03
PROVIDERS: ADMIT Internal Medicine; ATTEND Internal Medicine
DX: J18.9 Pneumonia, unspecified organism (principal); R62.7 Adult failure to thrive; Z68.20 Body mass index [BMI] 20.0-20.9, adult; H50.00 Unspecified esotropia; Q14.2 Congenital malformation of optic disc; R00.0 Tachycardia, unspecified; F73 Profound intellectual disabilities; Q63.1 Lobulated, fused and horseshoe kidney; G40.909 Epilepsy, unspecified, not intractable, without status epilepticus; R65.10 Systemic inflammatory response syndrome (SIRS) of non-infectious origin without acute organ dysfunction; N28.89 Other specified disorders of kidney and ureter; R53.2 Functional quadriplegia; K21.9 Gastro-esophageal reflux disease without esophagitis; D72.829 Elevated white blood cell count, unspecified; N13.2 Hydronephrosis with renal and ureteral calculous obstruction; K57.90 Diverticulosis of intestine, part unspecified, without perforation or abscess without bleeding; R11.10 Vomiting, unspecified; R50.9 Fever, unspecified
CPT/HCPCS: 36415; 71045-TC-FY; 74176-TC; 80053; 80156; 81003; 82962; 83605; 83735; 84100; 85025; 87040; 87086; 93005; 93010; 99285-25; C9803; J0131; U0003; U0005

== ENCOUNTER 2022-10-16 07:03 | Inpatient (IN) | payer OTHER ==
[2022-10-16 08:36] LABS: HEMATOCRIT 44.8 % (32.4-45.2); HEMOGLOBIN 16.1 GM/dL (10.7-15.3); MCH 31.1 pg (25.7-33.7); MCHC 35.9 g/dl (32.0-36.0); MEAN CELL VOLUME 86.6 fl (80-96); MEAN PLT VOLUME 9.7 fl (7.5-11.1); PLATELET COUNT 143 10^3/uL (134-434); RBC 5.18 M/mm3 (3.60-5.2); RDW 12.9 % (11.6-15.6); WHITE BLOOD COUNT 6.4 K/mm3 (4.0-10.0)
[2022-10-16 08:49] LABS: CALCIUM 8.9 mg/dL (8.5-10.1)
[2022-10-16 08:50] LABS: ALBUMIN 3.4 g/dl (3.4-5.0); BLOOD UREA NITROGEN 9.8 mg/dL (7-18)
[2022-10-16 08:53] LABS: CREATININE 0.6 mg/dL (0.55-1.3)
[2022-10-16 08:55] LABS: BILIRUBIN,TOTAL 0.9 mg/dL (0.2-1); TOT PROT 7.4 g/dl (6.4-8.2)
[2022-10-16 09:42] LABS: ANISOCYTOSIS 0; MACROCYTOSIS 0
[2022-10-16 11:45] LABS: EPI CELLS 4 /uL (0-25.1); HYALINE CASTS 2 /uL (0-3.1); PH,URINE 5.5 (5.0-8.0); URINE APPEARANCE CLEAR; URINE BACTERIA 2827 /uL (0-1359); URINE BILIRUBIN NEGATIVE (NEGATIVE); URINE COLOR YELLOW; URINE GLUCOSE (UA) NEGATIVE (NEGATIVE); URINE KETONE NEGATIVE (NEGATIVE); URINE LEUK ESTERASE 2+ (NEGATIVE); URINE NITRITE POSITIVE (NEGATIVE); URINE PROTEIN TRACE (NEGATIVE); URINE RBC 7 /uL (0-23.9); URINE WBC 374 /uL (0-25.8)
[2022-10-16 12:00] LABS: ALBUMIN 3.6 g/dl (3.4-5.0); BLOOD UREA NITROGEN 10.6 mg/dL (7-18)
[2022-10-16 12:03] LABS: CREATININE 0.6 mg/dL (0.55-1.3)
[2022-10-16 12:05] LABS: TOT PROT 7.4 g/dl (6.4-8.2)
[2022-10-16] MEDS ORDERED: DEXTROSE 5%-NORMAL SALINE 1,000 ML IV SCH (15:30)
[2022-10-16] MEDS ORDERED: BISACODYL 10 MG SUPP.RECT RC PRN (16:43)
[2022-10-16] MEDS: ASPIRIN COATED 81 MG TABLET.EC PO SCH (17:00)
[2022-10-16] MEDS ORDERED: PATIENT'S OWN MEDICATION (NON-FORMULARY) (Multivitamin [Multivitamins] 1 EACH Tablet) PO SCH (17:00)
[2022-10-16] MEDS: CEFTRIAXONE 1 GM in DEXTROSE 5%-WATER - 50 ML IVPB SCH (17:00)
[2022-10-16] MEDS ORDERED: CEFTRIAXONE 1 GM/50 ML BAG ONE (17:05)
[2022-10-16] MEDS ORDERED: ASPIRIN COATED 81 MG TABLET.EC ONE (17:07)
[2022-10-16 20:54] LABS: MAGNESIUM 2.2 mg/dL (1.8-2.4)
[2022-10-16] MEDS: METOPROLOL TARTRATE 25 MG TABLET (FP) PO SCH (21:22)
[2022-10-16] MEDS: dilTIAZem HCL 30 MG TABLET PO SCH (21:23)
[2022-10-16] MEDS ORDERED: levETIRAcetam 500 MG TABLET (FP) PO ONE (21:24)
[2022-10-16] MEDS: levETIRAcetam 500 MG/5 ML ORAL SOLUTION (UNIT-DOSE CUPS) PO SCH (21:28)
[2022-10-17] MEDS: dilTIAZem HCL 30 MG TABLET PO SCH ×3 (05:59→21:59)
[2022-10-17 08:20] LABS: BASO % 0.3 % (0-2.0); EOS % 1.7 % (0-4.5); HEMATOCRIT 42.7 % (32.4-45.2); HEMOGLOBIN 15.4 GM/dL (10.7-15.3); LYMPH % 29.1 % (8-40); MCH 30.3 pg (25.7-33.7); MCHC 36.1 g/dl (32.0-36.0); MEAN CELL VOLUME 83.8 fl (80-96); MEAN PLT VOLUME 8.9 fl (7.5-11.1); MONO % 13.1 % (3.8-10.2); NEUT % 55.8 % (42.8-82.8); PLATELET COUNT 162 10^3/uL (134-434); RDW 13.1 % (11.6-15.6)
[2022-10-17 08:49] LABS: ALBUMIN 3.4 g/dl (3.4-5.0); CALCIUM 9.3 mg/dL (8.5-10.1)
[2022-10-17 08:50] LABS: BLOOD UREA NITROGEN 12.2 mg/dL (7-18)
[2022-10-17 08:52] LABS: CREATININE 0.5 mg/dL (0.55-1.3); PHOSPHOROUS 3.9 mg/dL (2.5-4.9)
[2022-10-17 08:54] LABS: TOT PROT 7.2 g/dl (6.4-8.2)
[2022-10-17] MEDS ORDERED: PATIENT'S OWN MEDICATION (NON-FORMULARY) (Acidoph/L.Bulg/Bif.B/S.Thermop [Risa-Bid Caplet] PO SCH (10:00)
[2022-10-17] MEDS: CEFTRIAXONE 1 GM in DEXTROSE 5%-WATER - 50 ML IVPB SCH (10:59)
[2022-10-17] MEDS: ENOXAPARIN NA (PORCINE) 40 MG/0.4 ML DISP.SYRIN SQ SCH (11:00)
[2022-10-17] MEDS: levETIRAcetam 500 MG/5 ML ORAL SOLUTION (UNIT-DOSE CUPS) PO SCH ×2 (11:53→21:58)
[2022-10-17] MEDS: METOPROLOL TARTRATE 25 MG TABLET (FP) PO SCH ×2 (11:53→21:58)
[2022-10-17] MEDS: CHOLECALCIFEROL (VIT D3) 400 UNIT (10 MCG) TABLET PO SCH (11:54)
[2022-10-17] MEDS: MULTIVITAMINS (DAILY MVI) TABLET (FP) PO SCH (11:54)
[2022-10-17] MEDS: ASPIRIN COATED 81 MG TABLET.EC PO SCH (11:54)
[2022-10-17] MEDS: PYRIDOXINE HCL (B-6) 50 MG TABLET (FP) PO SCH (12:04)
[2022-10-17] MEDS: LACTOBACILLUS ACIDOPHILUS 1 TABLET PO SCH (12:04)
[2022-10-18] MEDS: dilTIAZem HCL 30 MG TABLET PO SCH ×4 (07:16→22:45)
[2022-10-18] MEDS: MULTIVITAMINS (DAILY MVI) TABLET (FP) PO SCH (09:03)
[2022-10-18] MEDS: ASPIRIN COATED 81 MG TABLET.EC PO SCH (09:03)
[2022-10-18] MEDS: ENOXAPARIN NA (PORCINE) 40 MG/0.4 ML DISP.SYRIN SQ SCH (09:03)
[2022-10-18] MEDS: METOPROLOL TARTRATE 25 MG TABLET (FP) PO SCH ×3 (09:03→22:45)
[2022-10-18] MEDS: levETIRAcetam 500 MG/5 ML ORAL SOLUTION (UNIT-DOSE CUPS) PO SCH ×3 (09:03→22:45)
[2022-10-18] MEDS: LACTOBACILLUS ACIDOPHILUS 1 TABLET PO SCH (09:03)
[2022-10-18] MEDS: CEFTRIAXONE 1 GM in DEXTROSE 5%-WATER - 50 ML IVPB SCH (09:04)
[2022-10-18] MEDS: PYRIDOXINE HCL (B-6) 50 MG TABLET (FP) PO SCH (09:43)
[2022-10-18] MEDS: CHOLECALCIFEROL (VIT D3) 400 UNIT (10 MCG) TABLET PO SCH (09:44)
[2022-10-18] MEDS ORDERED: BISACODYL 10 MG SUPP.RECT RC PRN (10:23)
[2022-10-18 16:18] VITALS: BMI 19.0
[2022-10-19] MEDS: dilTIAZem HCL 30 MG TABLET PO SCH ×3 (06:21→21:52)
[2022-10-19] MEDS: PYRIDOXINE HCL (B-6) 50 MG TABLET (FP) PO SCH (09:43)
[2022-10-19] MEDS: METOPROLOL TARTRATE 25 MG TABLET (FP) PO SCH ×2 (09:44→21:52)
[2022-10-19] MEDS: levETIRAcetam 500 MG/5 ML ORAL SOLUTION (UNIT-DOSE CUPS) PO SCH ×2 (09:44→21:52)
[2022-10-19] MEDS: ASPIRIN COATED 81 MG TABLET.EC PO SCH (09:45)
[2022-10-19] MEDS: MULTIVITAMINS (DAILY MVI) TABLET (FP) PO SCH (09:45)
[2022-10-19] MEDS: LACTOBACILLUS ACIDOPHILUS 1 TABLET PO SCH (09:45)
[2022-10-19] MEDS: CHOLECALCIFEROL (VIT D3) 400 UNIT (10 MCG) TABLET PO SCH (09:46)
[2022-10-19] MEDS: ENOXAPARIN NA (PORCINE) 40 MG/0.4 ML DISP.SYRIN SQ SCH (09:46)
[2022-10-19] MEDS ORDERED: CEFTRIAXONE 1 GM in DEXTROSE 5%-WATER - 50 ML IVPB SCH (10:00)
[2022-10-19] MEDS ORDERED: CEFUROXIME AXETIL 500 MG TABLET PO SCH (13:00)
[2022-10-19] MEDS: CEFUROXIME AXETIL 250 MG TABLET PO SCH (23:48)
[2022-10-20] MEDS: dilTIAZem HCL 30 MG TABLET PO SCH ×2 (06:05→13:31)
[2022-10-20 09:27] LABS: HEMATOCRIT 42.9 % (32.4-45.2); HEMOGLOBIN 15.2 GM/dL (10.7-15.3); MCHC 35.4 g/dl (32.0-36.0); MEAN CELL VOLUME 84.8 fl (80-96); MEAN PLT VOLUME 8.9 fl (7.5-11.1); PLATELET COUNT 183 10^3/uL (134-434); RBC 5.07 M/mm3 (3.60-5.2); RDW 12.8 % (11.6-15.6); WHITE BLOOD COUNT 7.2 K/mm3 (4.0-10.0)
[2022-10-20 09:54] LABS: CALCIUM 9.2 mg/dL (8.5-10.1)
[2022-10-20 09:55] LABS: ALBUMIN 3.6 g/dl (3.4-5.0)
[2022-10-20 09:58] LABS: CREATININE 0.6 mg/dL (0.55-1.3)
[2022-10-20 09:59] LABS: BILIRUBIN,TOTAL 0.8 mg/dL (0.2-1); TOT PROT 7.3 g/dl (6.4-8.2)
[2022-10-20] MEDS: LACTOBACILLUS ACIDOPHILUS 1 TABLET PO SCH (10:35)
[2022-10-20] MEDS: levETIRAcetam 500 MG/5 ML ORAL SOLUTION (UNIT-DOSE CUPS) PO SCH (10:36)
[2022-10-20] MEDS: ASPIRIN COATED 81 MG TABLET.EC PO SCH (10:36)
[2022-10-20] MEDS: CHOLECALCIFEROL (VIT D3) 400 UNIT (10 MCG) TABLET PO SCH (10:36)
[2022-10-20] MEDS: MULTIVITAMINS (DAILY MVI) TABLET (FP) PO SCH (10:36)
[2022-10-20] MEDS: METOPROLOL TARTRATE 25 MG TABLET (FP) PO SCH (10:36)
[2022-10-20] MEDS: PYRIDOXINE HCL (B-6) 50 MG TABLET (FP) PO SCH (10:36)
[2022-10-20] MEDS: ENOXAPARIN NA (PORCINE) 40 MG/0.4 ML DISP.SYRIN SQ SCH (10:36)
[2022-10-20] MEDS: CEFUROXIME AXETIL 250 MG TABLET PO SCH (10:46)
[2022-10-20 14:41] VITALS: BP 119/63; PULSE 60; RESP 19; TEMP 97.5
== END 2022-10-20 15:15 | disposition home or self-care (01) | DRG 463 ==
LOC: JER 07:03 → JERBED 08:04 → OBSVTOIN 13:40 → J4W 21:58 → J5S 10-18 00:31 → J6S 10-18 10:13
PROVIDERS: ADMIT Internal Medicine; ATTEND Internal Medicine
DX: N39.0 Urinary tract infection, site not specified (principal); F73 Profound intellectual disabilities; G40.909 Epilepsy, unspecified, not intractable, without status epilepticus; Q63.1 Lobulated, fused and horseshoe kidney; H50.00 Unspecified esotropia; I48.91 Unspecified atrial fibrillation; R55 Syncope and collapse; Q24.9 Congenital malformation of heart, unspecified
CPT/HCPCS: 36415; 70450-TC; 71045-TC-FY; 80053; 80177; 81003; 82308; 83605; 83735; 84100; 84439; 84443; 84484; 85025; 85027; 87086; 87186; 93005; 93010; 93306-TC; 99285-25; C9803-CS; G0378; U0003; U0005

== ENCOUNTER 2023-01-19 17:28 | Emergency (ER) | payer OTHER ==
[2023-01-19 17:43] VITALS: BP 135/67; PULSE 66; RESP 20; TEMP 97.6; BMI 18.6
== END 2023-01-19 18:55 | disposition home or self-care (01) ==
LOC: JERFT 17:28 → JER 17:28 → JERFT 18:55
DX: R22.32 Localized swelling, mass and lump, left upper limb (principal); S60.052A Contusion of left little finger without damage to nail, initial encounter; X58.XXXA Exposure to other specified factors, initial encounter
CPT/HCPCS: 73130-TC-LT-FY; 99283-25

== ENCOUNTER 2024-02-16 09:21 | Inpatient (IN) | payer OTHER ==
[2024-02-16 12:18] LABS: BASO % 0.6 % (0-2.0); HEMATOCRIT 44.4 % (32.4-45.2); HEMOGLOBIN 15.6 GM/dL (10.7-15.3); MCHC 35.1 g/dl (32.0-36.0); MEAN CELL VOLUME 85.3 fl (80-96); MEAN PLT VOLUME 8.5 fl (7.5-11.1); MONO % 6.5 % (3.8-10.2); NEUT % 56.9 % (42.8-82.8); PLATELET COUNT 202 10^3/uL (134-434); RDW 12.4 % (11.6-15.6); WHITE BLOOD COUNT 10.4 K/mm3 (4.0-10.0)
[2024-02-16 12:22] LABS: INR 1.13 (0.83-1.09); PROTHROMBIN TIME (PATIENT) 12.9 SEC (9.7-13.0)
[2024-02-16 12:25] LABS: ACTIVATED PTT 32.3 SECONDS (25.2-36.5)
[2024-02-16 12:36] LABS: CALCIUM 9.2 mg/dL (8.5-10.1)
[2024-02-16 12:38] LABS: ALBUMIN 3.8 g/dl (3.4-5.0); BLOOD UREA NITROGEN 10.8 mg/dL (7-18)
[2024-02-16 12:40] LABS: CREATININE 0.7 mg/dL (0.55-1.3)
[2024-02-16 12:43] LABS: BILIRUBIN,TOTAL 0.8 mg/dL (0.2-1); TOT PROT 7.5 g/dl (6.4-8.2)
[2024-02-16] MEDS: ENOXAPARIN NA (PORCINE) 30 MG/0.3 ML DISP.SYRIN SQ ONE (16:53)
[2024-02-16] MEDS ORDERED: ENOXAPARIN NA (PORCINE) 30 MG/0.3 ML DISP.SYRIN SQ ONE (18:06)
[2024-02-16] MEDS ORDERED: ENOXAPARIN NA (PORCINE) 40 MG/0.4 ML DISP.SYRIN SQ ONE (18:07)
[2024-02-17] MEDS: METOPROLOL TARTRATE 25 MG TABLET (FP) PO SCH (09:41)
[2024-02-17] MEDS: levETIRAcetam 500 MG/5 ML ORAL SOLUTION (UNIT-DOSE CUPS) PO SCH (09:41)
[2024-02-17] MEDS: ENOXAPARIN NA (PORCINE) 40 MG/0.4 ML DISP.SYRIN SQ SCH (09:41)
[2024-02-17 12:11] LABS: HEMATOCRIT 44.8 % (32.4-45.2); HEMOGLOBIN 15.7 GM/dL (10.7-15.3); MCH 29.8 pg (25.7-33.7); MEAN CELL VOLUME 85.4 fl (80-96); MEAN PLT VOLUME 8.8 fl (7.5-11.1); PLATELET COUNT 208 10^3/uL (134-434); RBC 5.25 M/mm3 (3.60-5.2); RDW 12.4 % (11.6-15.6); WHITE BLOOD COUNT 10.7 K/mm3 (4.0-10.0)
[2024-02-17] MEDS: dilTIAZem HCL 30 MG TABLET PO SCH (13:01)
[2024-02-17 13:11] LABS: POTASSIUM 3.8 mmol/L (3.5-5.1)
[2024-02-17 13:13] LABS: BLOOD UREA NITROGEN 10.1 mg/dL (7-18); CALCIUM 9.4 mg/dL (8.5-10.1)
[2024-02-17 13:14] LABS: ALBUMIN 3.8 g/dl (3.4-5.0)
[2024-02-17 13:18] LABS: BILIRUBIN,TOTAL 0.7 mg/dL (0.2-1); CREATININE 0.7 mg/dL (0.55-1.3); TOT PROT 7.4 g/dl (6.4-8.2)
[2024-02-17] MEDS: ASPIRIN COATED 81 MG TABLET.EC PO SCH (14:44)
[2024-02-17 19:20] LABS: EPI CELLS 4 /uL (0-25.1); HYALINE CASTS 2 /uL (0-3.1); URINE APPEARANCE CLEAR; URINE BACTERIA >9,000 /uL (0-1359); URINE BILIRUBIN NEGATIVE (NEGATIVE); URINE COLOR YELLOW; URINE GLUCOSE (UA) NEGATIVE (NEGATIVE); URINE KETONE NEGATIVE (NEGATIVE); URINE LEUK ESTERASE 3+ (NEGATIVE); URINE NITRITE POSITIVE (NEGATIVE); URINE PROTEIN NEGATIVE (NEGATIVE); URINE RBC 9 /uL (0-23.9); URINE WBC 368 /uL (0-25.8)
[2024-02-17] MEDS: CEFUROXIME AXETIL 250 MG TABLET PO SCH (22:08)
[2024-02-18 01:13] VITALS: RESP 18
[2024-02-18] MEDS: CEFTRIAXONE 1 GM in DEXTROSE 5%-WATER - 50 ML IVPB ONE (12:05)
[2024-02-18 12:28] LABS: HEMATOCRIT 45.5 % (32.4-45.2); HEMOGLOBIN 15.8 GM/dL (10.7-15.3); MCH 30.1 pg (25.7-33.7); MCHC 34.8 g/dl (32.0-36.0); MEAN CELL VOLUME 86.4 fl (80-96); MEAN PLT VOLUME 9.4 fl (7.5-11.1); PLATELET COUNT 196 10^3/uL (134-434); RBC 5.27 M/mm3 (3.60-5.2); RDW 11.9 % (11.6-15.6); WHITE BLOOD COUNT 10.4 K/mm3 (4.0-10.0)
[2024-02-18 14:56] VITALS: BP 124/74; PULSE 69; TEMP 97.7
[2024-02-18 17:38] LABS: POTASSIUM 4.1 mmol/L (3.5-5.1)
[2024-02-18 17:40] LABS: CALCIUM 9.5 mg/dL (8.5-10.1)
[2024-02-18 17:41] LABS: MAGNESIUM 2.3 mg/dL (1.8-2.4)
[2024-02-18 17:43] LABS: CREATININE 0.7 mg/dL (0.55-1.3); PHOSPHOROUS 4.7 mg/dL (2.5-4.9)
[2024-02-18 17:45] LABS: TOT PROT 7.6 g/dl (6.4-8.2)
== END 2024-02-18 16:35 | disposition home or self-care (01) | DRG 201 ==
LOC: JER 09:21 → JERBED 14:29 → OBSVTOIN 16:57 → J4S 20:33
PROVIDERS: ADMIT Internal Medicine; ATTEND Internal Medicine
DX: I48.92 Unspecified atrial flutter (principal); R00.1 Bradycardia, unspecified; I10 Essential (primary) hypertension; R62.50 Unspecified lack of expected normal physiological development in childhood; G40.909 Epilepsy, unspecified, not intractable, without status epilepticus; I48.91 Unspecified atrial fibrillation; I45.10 Unspecified right bundle-branch block; D72.829 Elevated white blood cell count, unspecified; N39.0 Urinary tract infection, site not specified; B96.20 Unspecified Escherichia coli [E. coli] as the cause of diseases classified elsewhere
CPT/HCPCS: 36415; 71045-TC-FY; 80053; 81003; 83735; 84100; 84484; 85025; 85027; 85610; 85730; 87086; 87186; 87635; 93005; 93010; 99285-25; G0378

== ENCOUNTER 2024-06-03 21:45 | Emergency (ER) | payer OTHER ==
[2024-06-03 21:53] VITALS: BMI 19.7
[2024-06-03] MEDS ORDERED: SODIUM CHLORIDE 1,000 ML IV STA (23:11)
[2024-06-03] MEDS: LACTATED RINGERS SOLUTION 1,000 ML IV STA (23:18)
[2024-06-03 23:24] LABS: BASO % 0.4 % (0-2.0); EOS % 1.8 % (0-4.5); HEMATOCRIT 43.9 % (32.4-45.2); LYMPH % 12.9 % (8-40); MCH 29.8 pg (25.7-33.7); MCHC 34.1 g/dl (32.0-36.0); MEAN CELL VOLUME 87.2 fl (80-96); MONO % 8.5 % (3.8-10.2); NEUT % 76.4 % (42.8-82.8); PLATELET COUNT 236 10^3/uL (134-434); RBC 5.03 M/mm3 (3.60-5.2); RDW 12.5 % (11.6-15.6); WHITE BLOOD COUNT 16.8 K/mm3 (4.0-10.0)
[2024-06-03 23:50] LABS: POTASSIUM 3.7 mmol/L (3.5-5.1)
[2024-06-03 23:51] LABS: CALCIUM 8.5 mg/dL (8.5-10.1)
[2024-06-03 23:53] LABS: ALBUMIN 2.8 g/dl (3.4-5.0); BLOOD UREA NITROGEN 9.6 mg/dL (7-18)
[2024-06-03 23:56] LABS: CREATININE 0.7 mg/dL (0.55-1.3)
[2024-06-03 23:57] LABS: BILIRUBIN,TOTAL 0.8 mg/dL (0.2-1); TOT PROT 6.7 g/dl (6.4-8.2)
[2024-06-04 01:06] LABS: EPI CELLS >36 /uL (0-25.1); HYALINE CASTS 0 /uL (0-3.1); PH,URINE 5.5 (5.0-8.0); URINE APPEARANCE CLOUDY; URINE BACTERIA 1545 /uL (0-1359); URINE BILIRUBIN NEGATIVE (NEGATIVE); URINE COLOR YELLOW; URINE GLUCOSE (UA) NEGATIVE (NEGATIVE); URINE KETONE NEGATIVE (NEGATIVE); URINE LEUK ESTERASE 2+ (NEGATIVE); URINE NITRITE NEGATIVE (NEGATIVE); URINE PROTEIN NEGATIVE (NEGATIVE); URINE RBC 14 /uL (0-23.9); URINE WBC 82 /uL (0-25.8)
[2024-06-04] MEDS ORDERED: CEPHALEXIN MONOHYDRATE 500 MG CAPSULE (UD) ONE (02:04)
[2024-06-04] MEDS: CEPHALEXIN MONOHYDRATE 500 MG CAPSULE (UD) PO ONE (02:06)
[2024-06-04 02:26] VITALS: BP 107/77; PULSE 97; RESP 16; TEMP 98.8
== END 2024-06-04 02:28 | disposition home or self-care (01) ==
LOC: JER 21:45
PROC: 3E0337Z Introduction of Electrolytic and Water Balance Substance into Peripheral Vein, Percutaneous Approach (ICD-10-PCS; principal; 2024-06-03)
DX: R00.0 Tachycardia, unspecified (principal); I95.9 Hypotension, unspecified; R63.0 Anorexia; N39.0 Urinary tract infection, site not specified; Z20.822 Contact with and (suspected) exposure to COVID-19
CPT/HCPCS: 0241U-QW; 36415; 71045-TC-FY; 80053; 81003; 84484; 85025; 87086; 87186; 93005; 93010; 99285-25

== ENCOUNTER 2024-06-10 13:35 | Emergency (ER) | payer OTHER ==
[2024-06-10 13:46] VITALS: RESP 16; TEMP 97.5; BMI 21.9
[2024-06-10] MEDS ORDERED: ONDANSETRON 4 MG/2 ML VIAL IVPUSH ONE (14:52)
[2024-06-10] MEDS ORDERED: ACETAMINOPHEN INJECTION 100 ML ONE (15:24)
[2024-06-10 15:25] LABS: BASO % 0.3 % (0-2.0); EOS % 1.4 % (0-4.5); HEMATOCRIT 44.3 % (32.4-45.2); HEMOGLOBIN 15.2 GM/dL (10.7-15.3); LYMPH % 10.1 % (8-40); MCH 29.4 pg (25.7-33.7); MCHC 34.3 g/dl (32.0-36.0); MEAN CELL VOLUME 85.8 fl (80-96); MONO % 6.7 % (3.8-10.2); NEUT % 81.5 % (42.8-82.8); PLATELET COUNT 261 10^3/uL (134-434); RBC 5.17 M/mm3 (3.60-5.2); RDW 12.7 % (11.6-15.6); WHITE BLOOD COUNT 18.7 K/mm3 (4.0-10.0)
[2024-06-10] MEDS: ACETAMINOPHEN 1000 MG/100 ML BAG IVPB ONE (15:31)
[2024-06-10 16:12] LABS: POTASSIUM 3.6 mmol/L (3.5-5.1)
[2024-06-10 16:14] LABS: ALBUMIN 2.7 g/dl (3.4-5.0); BLOOD UREA NITROGEN 8.8 mg/dL (7-18); CALCIUM 8.8 mg/dL (8.5-10.1); MAGNESIUM 2.2 mg/dL (1.8-2.4)
[2024-06-10 16:17] LABS: CREATININE 0.8 mg/dL (0.55-1.3)
[2024-06-10 16:18] LABS: PHOSPHOROUS 2.9 mg/dL (2.5-4.9)
[2024-06-10 16:19] LABS: BILIRUBIN,TOTAL 0.6 mg/dL (0.2-1); TOT PROT 6.6 g/dl (6.4-8.2)
[2024-06-10] MEDS: SODIUM CHLORIDE 0.9% 500 ML INFUS.BAG IV ONE (19:37)
[2024-06-10 20:07] LABS: EPI CELLS 13 /uL (0-25.1); HYALINE CASTS 6 /uL (0-3.1); PH,URINE 5.5 (5.0-8.0); URINE APPEARANCE CLEAR; URINE BACTERIA 9 /uL (0-1359); URINE BILIRUBIN NEGATIVE (NEGATIVE); URINE COLOR DK YELLOW; URINE GLUCOSE (UA) NEGATIVE (NEGATIVE); URINE KETONE NEGATIVE (NEGATIVE); URINE LEUK ESTERASE NEGATIVE (NEGATIVE); URINE NITRITE NEGATIVE (NEGATIVE); URINE PROTEIN 1+ (NEGATIVE); URINE RBC 148 /uL (0-23.9)
[2024-06-10 21:45] VITALS: BP 111/78; PULSE 98
== END 2024-06-10 21:51 | disposition short-term general hospital (02) ==
LOC: JER 13:35
PROC: 3E033NZ Introduction of Analgesics, Hypnotics, Sedatives into Peripheral Vein, Percutaneous Approach (ICD-10-PCS; principal; 2024-06-10)
DX: N83.8 Other noninflammatory disorders of ovary, fallopian tube and broad ligament (principal); R18.8 Other ascites; R11.2 Nausea with vomiting, unspecified; R00.0 Tachycardia, unspecified; Z20.822 Contact with and (suspected) exposure to COVID-19
CPT/HCPCS: 0241U-QW; 36415; 71046-TC-FY; 74177-TC; 80053; 81003; 83690; 83735; 84100; 85025; 87086; 99285-25; J0131; Q9967